=== PATIENT | female | born 1980 ===

== ENCOUNTER → 2020-09-14 | Emergency (ER) | payer SELFPAY ==
[~2020-09-14] VITALS: Ht 157.5 cm; Wt 91.6 kg
[~2020-09-14] MED LIST: K-TAB ER20 MEQ PO; LOSARTAN POTASS50 MG PO; METFORMIN HCL1000 MG PO; MOBIC15 MG PO; TRIJARDY XR 5-1 EACH PO
== END ==
LOC: ED 13:54
DX: K08.89 Other specified disorders of teeth and supporting structures (principal)